=== PATIENT | female | born 1955 | race Caucasian/White ===

== ENCOUNTER → 2022-01-31 | Outpatient (CLI) | payer BC, MEDICARE ==
--- NOTE | 2022-02-01 15:46 | EEG ---
ELECTROENCEPHALOGRAM REPORT PREAMBLE: This is a 66-year-old female with memory loss and also history of depression. The patient has been having episodes of confusion. This study is performed to rule out any epileptiform activity. CURRENT MEDICATIONS: 1. Lisinopril. 2. . EEG FINDINGS: This is a 21-channel digital EEG recorded with video component, utilizing 10/20 international system with referential and bipolar montages. Background consists of well-developed, well-regulated, moderate-voltage activity in mixed frequencies of alpha and some low-voltage fast frequency beta activity seen in bihemispheric region. The background is posterior dominant and reactive to eye opening and closing. The photic driving response was seen with some flash frequencies. There is constant focal dysrhythmic theta and delta slowing seen in bifrontal region. Different stages of sleep were not seen. No focal or generalized epileptiform activity was seen. IMPRESSION: This is an abnormal EEG due to the presence of bifrontal slowing. This is suggestive of focal cortical neuronal dysfunction, may suggest underlying structural abnormality. Recommend correlation with the brain imaging to rule out any structural abnormality. No epileptiform activity was seen. MMODL / IJN: [id number] / CAROLYN
== END | disposition home or self-care (01) ==
LOC: NEUROMAIN 08:03
PROVIDERS: ATTEND Family Medicine
DX: R41.3 Other amnesia (principal)
CPT/HCPCS: 95816